=== PATIENT | female | born 2005 | race Caucasian/White ===

== ENCOUNTER 2024-05-14 13:29 | Inpatient (IN) | payer MEDICAID ==
[2024-05-14] VITALS (11 sets, daily range): BP systolic 116–164; BP diastolic 64–88; PULSE 86–106; TEMP 97.2–97.8
[~2024-05-14] VITALS: Ht 167.6 cm; Wt 85.0 kg
--- NOTE | 2024-05-14 13:25 | NUR ---
PT ARRIVES TO UNIT C/O LOF. DENIES CONTRACTIONS. REPORTS POSITIVE MOVEMENT. FLUID DRIPPING DOWN LEG, PINK TINGED. AMNITEST POSITIVE. EFM TRACING CATEGORY 1. IRREGULAR MILD CONTRACTIONS. SVE FT/50/-2. CLEAR FLUID NOTED ON GLOVE. PT STATES SHE STARTED LEAKING FLUID AROUND 0830 THIS AM. SEE PHYSICIAN ORDERS.
[2024-05-14] MEDS ORDERED: PRENATAL (13:56)
[2024-05-14] MEDS ORDERED: LR 1,000 ML IV SCH (14:15)
[2024-05-14] MEDS ORDERED: LR & Oxytocin 500 ML IV SCH (14:15)
[2024-05-14 15:00] LABS: BASO % 0.2 % (0.0-2.0); EOS % 0.2 % (0.0-4.0); GRAN # 6.4 K/mm3 (1.4-6.5); GRAN % 76.7 % (42.2-75.2); HEMOGLOBIN 14.3 g/dl (12.0-15.0); LYMPH # 1.6 K/mm3 (1.2-3.4); LYMPH % 19.1 % (20.0-51.0); MEAN CELL VOLUME 89 fl (80.0-95.0); MEAN CORPUSCULAR HEMOGLOBIN 30 pg (26-32); MEAN CORPUSCULAR HGB CONC 33 g/dl (33.0-37.0); MEAN PLATELET VOLUME 11.7 fl (7.4-10.4); MONO # 0.3 K/mm3 (0.1-0.6); MONO % 3.6 % (1.7-9.3); PLATELET COUNT 176 K/mm3 (130-400); RED BLOOD COUNT 4.82 M/mm3 (4.10-5.30); REDCELL DISTRIBUTION WIDTH-CV 13.8 % (11.5-14.5)
[2024-05-14] MEDS ORDERED: diphenhydrAMINE 25 MG CAP PO PRN ×2 (15:00→17:45)
[2024-05-14] MEDS ORDERED: ePHEDrine 50 MG/10 ML VIAL IV PRN ×2 (15:00→17:45)
[2024-05-14] MEDS ORDERED: diphenhydrAMINE 50 MG/ML 1 ML VIAL IV PRN ×2 (15:00→17:45)
[2024-05-14] MEDS ORDERED: Ondansetron 4 MG/2 ML VIAL IV PRN ×2 (15:00→17:45)
[2024-05-14] MEDS ORDERED: Naloxone 0.4 MG/ML VIAL IV PRN ×2 (15:00→17:45)
--- NOTE | 2024-05-14 15:33 | NUR ---
Pt off EFM to bathroom and ambulate around the room.
[2024-05-14 22:17] LABS: TRICYCLIC ANTIDEPRESS URINE NEGATIVE (NEGATIVE)
[2024-05-15] VITALS (64 sets, daily range): BP systolic 99–140; BP diastolic 55–88; PULSE 72–120; TEMP 97.3–99.1
--- NOTE | 2024-05-15 | NUR ---
2329- SVE UNCHANGED. PT RATING PAIN AT 6-7/10 WITH CONTRACTIONS. PT REQUESTS EPIDURAL. 2338- Mary BHAGAT CRNA NOTIFIED OF REQUEST FOR EPIDURAL. COMING TO HOSPITAL FOR EPIDURAL PLACEMENT. 2354- Mary BHAGAT CRNA IN ROOM. PT SITTING AT SIDE OF BED, RISKS AND BENEFITS DISCUSSED. UNDERSTANDING VERBALIZED. CONSENT SIGNED. PT SITTING UP AT SIDE OF BED FOR PLACEMENT. 0000- SINGLE SHOT GIVEN BY Mary BHAGAT CRNA. PT TOLERATED WELL.
[2024-05-15] MEDS ORDERED: Penicillin G Potassium 5,000,000 UNITS in NS 100 ML IV ONE (02:45)
[2024-05-15] MEDS ORDERED: Penicillin G Potassium 2,500,000 UNITS in NS 100 ML IV SCH (06:44)
--- NOTE | 2024-05-15 06:45 | NUR ---
SECOND DOSE OF PENICILLIN G STARTED AT THIS TIME FOR INFECTION PREVENTION.
--- NOTE | 2024-05-15 07:00 | NUR ---
0650DR THALIA ON UNIT 0700DR THALIA AT BEDSIDE. DR VÁSQUEZ DISCUSSES POC WITH PT. PT VERBALIZES UNDERSTANDING. SVE AT THIS TIME PER DR VÁSQUEZ. /. PT TOLERATED WELL. PT VITAL SIGNS STABLE. EFM TRACING CAT I.
--- NOTE | 2024-05-15 08:40 | NUR ---
PT TEMPATURE TAKEN AT THIS TIME. ORAL 98.2. AXILLARY 99.1. DR VÁSQUEZ NOTIFIED.
--- NOTE | 2024-05-15 09:00 | NUR ---
PT STATES SHE IS FEELING SOME PRESSURE. RECURRENT EARLY DECELERATIONS NOTED. SVE AT THIS TIME PER THIS RN. /-1. PT TOLERATED WELL.
--- NOTE | 2024-05-15 10:10 | NUR ---
SVE AT THIS TIME PER THIS RN. ANTERIOR LIP NOTED. /0. PT TOLERATED WELL. EFM TRACING CAT I. WITH SOME EARLY DECELERATIONS NOTED.
--- NOTE | 2024-05-15 10:45 | NUR ---
THIRD DOSE OF PENICILLIN G STARTED AT THIS TIME FOR CONTINUED INFECTION PREVENTION.
--- NOTE | 2024-05-15 11:05 | NUR ---
SVE AT THIS PER THIS RN. 9-/+1. PT TOLERATED WELL. EFM TRACING CAT I.
--- NOTE | 2024-05-15 13:24 | NUR ---
1200SVE AT THIS TIME PER THIS RN. /+2. PT TOLERATED WELL. EFM TRACING CAT I. PT VITAL SIGNS STABLE. 1205FOLEY REMOVED AT THIS TIME. ROOM SET UP FOR DELIVERY. 1210THIS RN BEGINS PUSHING WITH PT AT THIS TIME. GOOD MATERNAL EFFORT. EFM TRACING CAT I. PT VITAL SIGNS STABLE. 1315DR THALIA AT BEDSIDE. MANE NURSE AND ANGELA RN AT BEDSIDE. ROOM AND PT SET UP FOR IMPENDING DELIVERY. 1324SVD OF VIABLE FEMALE PER DR VÁSQUEZ. INFANT PLACED ON MATERNAL ABDOMEN. CARE ASSUMED BY NURSERY. 1326SVD OF PLACENTA PER DR VÁSQUEZ. PITOCIN BOLUS STARTED AT THIS TIME. 2ND DEGREE TEAR NOTED PER DR VÁSQUEZ. BLADDER DRAINED PER DR VÁSQUEZ. REPAIR STARTED AT THIS TIME. 1330REPAIR FINISHED AT THIS TIME PER DR VÁSQUEZ. PT TOLERATED WELL. FUNDUS FIRM AT U. LOCHIA WNL. PT VITAL SIGNS STABLE. 1335ROOM AND BED PUT BACK TOGETHER. PT COMFORTABLE IN BED. CHUX PAD CHANGED. PERICARE PERFORMED. ICE PACK PLACED ON PERINEUM. FUNDUS FIRM AT U. LOCHIA WNL.
[2024-05-15] MEDS ORDERED: Loratadine 10 MG TAB PO PRN (14:00)
[2024-05-15] MEDS ORDERED: Magnes Hydrox (MOM) 80 MG/ML 30 ML CUP PO PRN (14:00)
[2024-05-15] MEDS ORDERED: Mag/Al Hydrox/Simeth Susp 30 ML CUP PO PRN (15:00)
[2024-05-15] MEDS ORDERED: Witch Hazel 50% Pads Bulk TUB TP PRN (15:00)
[2024-05-15] MEDS ORDERED: Ibuprofen 800 MG TAB PO SCH (15:00)
[2024-05-15] MEDS ORDERED: Measles/Mumps/Rubella Virus Vaccine Live w Diluent 0.5 ML VIAL SQ SCH (15:00)
[2024-05-15] MEDS ORDERED: Acetaminophen 500 MG TAB PO SCH (15:00)
[2024-05-15] MEDS ORDERED: Naloxone 0.4 MG/ML VIAL IV PRN (15:00)
[2024-05-15] MEDS ORDERED: Phenylephrine/Mineral Oil/Petrolatum 57 GM TUBE RC PRN (15:00)
[2024-05-15] MEDS ORDERED: oxyCODONE 5 MG TAB PO PRN (15:00)
[2024-05-15] MEDS ORDERED: Sennosides/Docusate 8.6-50 MG TAB PO SCH (17:00)
[2024-05-15] MEDS ORDERED: Rho(D) Imm Globulin 1,500 UNITS (300 MCG)/2 ML SYRINGE IV\\IM SCH (20:00)
[2024-05-15] MEDS ORDERED: traZODone 50 MG TAB PO PRN (21:00)
[2024-05-16 03:30] VITALS: BP 112/68; PULSE 79; TEMP 97.8
[2024-05-16 08:40] VITALS: BP 109/68; PULSE 94; TEMP 97.4
[2024-05-16] MEDS ORDERED: IBU800 M1 PO (10:05)
== END 2024-05-16 16:35 | disposition home or self-care (01) | DRG 807 ==
LOC: LDRO 13:29 → LDR 14:00 → OB 05-15 16:25
PROVIDERS: ADMIT Obstetrics & Gynecology
PROC: 10E0XZZ Delivery of Products of Conception, External Approach (ICD-10-PCS; principal; 2024-05-15)
PROC: 0KQM0ZZ Repair Perineum Muscle, Open Approach (ICD-10-PCS; 2024-05-15)
DX: O48.0 Post-term pregnancy (principal); Z37.0 Single live birth; O99.344 Other mental disorders complicating childbirth; F41.8 Other specified anxiety disorders; O76 Abnormality in fetal heart rate and rhythm complicating labor and delivery; Z3A.41 41 weeks gestation of pregnancy; O26.893 Other specified pregnancy related conditions, third trimester; O70.1 Second degree perineal laceration during delivery; Z67.11 Type A blood, Rh negative
CPT/HCPCS: J2540; J2590; J2791; J7120